=== PATIENT | male | born 1990 | race Two or more races ===

== ENCOUNTER 2023-08-03 17:15 | Emergency (ER) | payer OTHER ==
[2023-08-03 17:29] VITALS: BP 131/87; PULSE 100; RESP 18; TEMP 98.8; BMI 32.5
== END 2023-08-03 17:55 | disposition home or self-care (01) ==
LOC: FER 17:15
PROC: 0H9JXZZ Drainage of Left Upper Leg Skin, External Approach (ICD-10-PCS; principal; 2023-08-03)
DX: L72.0 Epidermal cyst (principal); L02.416 Cutaneous abscess of left lower limb
CPT/HCPCS: 99283-25

== ENCOUNTER 2023-10-26 19:17 | Emergency (ER) | payer OTHER ==
[2023-10-26 19:23] VITALS: BP 130/80; PULSE 73; RESP 17; TEMP 99.5; BMI 30.7
== END 2023-10-26 21:11 | disposition home or self-care (01) ==
LOC: FER 19:17
PROC: 0H98XZZ Drainage of Buttock Skin, External Approach (ICD-10-PCS; principal; 2023-10-26)
DX: L05.01 Pilonidal cyst with abscess (principal)
CPT/HCPCS: 99283-25

== ENCOUNTER 2023-10-29 21:49 | Emergency (ER) | payer OTHER ==
[2023-10-29 21:54] VITALS: BP 107/66; PULSE 98; RESP 18; TEMP 98.6; BMI 32.5
== END 2023-10-29 22:18 | disposition home or self-care (01) ==
LOC: FER 21:49
DX: Z48.01 Encounter for change or removal of surgical wound dressing (principal)
CPT/HCPCS: 99281-25